=== PATIENT | male | born 2000 | race Caucasian/White ===

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

== ENCOUNTER 2019-05-27 16:27 | Emergency (ER) | payer OTHER, SELFPAY ==
[2019-05-27 16:30] VITALS: BP 136/67; PULSE 79; RESP 17; TEMP 36.7; O2SAT 98; BMI 20.8
--- NOTE | 2019-05-27 17:02 | EKG12_ITS ---
Test Reason : CP Blood Pressure : / mmHG Vent. Rate : 069 BPM Atrial Rate : 069 BPM P-R Int : 144 ms QRS Dur : 084 ms QT Int : 354 ms P-R-T Axes : 062 057 068 degrees QTc Int : 379 ms Normal sinus rhythm Normal ECG Confirmed by INGRID MARTINEZ, CELIA ([id number]), newspaper copy editor BEATRIZ HERNANDEZ (55) on 05/29/2019 11:02:42 AM Referred By: JOE
--- NOTE | 2019-05-27 17:11 | ED.VIS.CHEST ---
History of Present Illness Chief Complaint: Chest Pain Informant: Patient Onset: Days Activity at onset: Unknown Timing: Intermittent Quality: Sharp, - - throbbing Location: Right Chest, Left Chest Worsened By: Nothing Relieved By: Nothing Associated Symptoms: Acid Reflux Narrative: Patient is a 18-year-old male with no past medical history he does a mid to history of vaping presenting with chest pain. Patient states he is having intermittent chest pain for the past few days. Mother states he is been complaining of it for about a week. He states the pain is in his lower anterior chest and radiates from side to side. He also gets some pain around his left shoulder blade. He describes the pain as aching and throbbing. He denies any associated shortness of breath or difficulty breathing. He states the pain last for a couple seconds to a couple minutes at a time and then goes away spontaneously. He cannot recall any aggravating or alleviating factors. He states he has multiple episodes a day but does not know how many. This morning he notes when he woke up he felt like he had indigestion. He took an dloj-toe-zpszkeu medication and that resolved. Patient denies any swelling of his legs. Denies any history of DVT or PE. Patient mother denies any family history of any cardiac issues at a young age. They deny any other complaints at this time. Patient not taken any pain medication for it. Patient notes yesterday he was working and lifting heavy items with no issues. Prior Similar Symptoms: No Recent Illness/Hospitalization: No CVD Risk Factors: Smoking - vaping. Negative for: Hypertension, Diabetes, Hypercholesterolemia, Family History 1' </=55 PE Risk Factors: Negative for: Recent Travel/Surgery, Recenet Immobilization, Prior DVT or PE, Cancer, OCP + Smoking + >/=35 Past Medical History - Allergies and Home Meds Allergies/Adverse Reactions: Allergies No Known Allergies Allergy (Verified 05/27/19 16:28) Primary Care Physician: Nikolas Mathews MD [Primary Care Provider] - Past Medical History: None Surgical History: noncontributory Lives: With Family Smoking Status: Current every day smoker Review of Systems General: Denies: Chills, Fever, Sweats Eyes: Denies: Visual changes - bilaterally, Diplopia ENT: Denies: Rhinorrhea, Sore throat Cardiovascular: Reports: Chest pain. Denies: Palpitations Respiratory: Denies: Dyspnea, Cough, Dyspnea on exertion Gastrointestinal: Denies: Abdominal pain, Nausea, Vomiting, Diarrhea, Melena, Hematochezia Genitourinary: Denies: Dysuria, Hematuria, Frequency Musculoskeletal: Reports: Back pain. Denies: Extremity Pain Skin: Denies: Rash, Wounds Neurological: Denies: Headache, Weakness, Numbness Physical Exam Vital Signs/Narrative: Vital Signs Temp Pulse Resp BP Pulse Ox 05/27/19 16:30 98.0 F 79 17 136/67 H 98 Inital Vital Signs reviewed: Yes General: Well nourished, Well developed, No Acute Distress Head: Normocephalic, Atraumatic Eyes: Perrl, EOMI ENT: Moist mucous membranes, No rhinorrhea Neck: Supple, Nontender, No JVD Cardiovascular: Regular rate, Regular rhythm, No murmurs Respiratory: No distress, CTA bilaterally, Chest nontender, - - No chest wall crepitus appreciated. Negative for: Chest tenderness Abdomen: Soft, Nontender, Nondistended, Normal bowel sounds Back: Nontender, Normal Inspection Extremities: Nontender, No edema Skin: Normal color, No rash Neurological: Alert, Oriented x3, Cranial nerves II-XII grossly intact, Normal Strength, Normal Sensation Psychological: Normal affect, Normal Mood Diagnostic/Tx/Re-eval Chest X-Ray - ED: 2 View, Read by ED Physician, Read by Radiologist, No Acute Disease Clinical Impression(s) from Imaging Studies Chest X-Ray 05/27/19 17:24 IMPRESSION: Normal x-ray examination of the chest. Electronically Signed: Alyssa Correa MD at 17:44 EST Tel , Service support , - Rhythm Strip Rhythm Strip: Sinus Rhythm Rate: 69 Ectopy: None - EKG Initial EKG Interpretation: Sinus Rhythm, - - Sinus rhythm at a rate of [address] segments Normal axis Compared to prior EKG patient has no significant changes?07/17/10 - Medical Decision Making Patient is evaluated for 1 week of intermittent chest pain. He appears nontoxic in no acute distress. EKG is normal. Chest x-rays not show any pneumothorax, infiltrate or cardiomegaly. Patient has a benign physical exam. He is PE RC negative. I suspect this is likely muscle skeletal chest pain. Do not think further lab work or imaging is indicated at this time. I think he is safe for outpatient follow-up. Patient is counseled he should quit vaping. Patient and mother counseled on signs and symptoms requiring return to the emergency room. He verbalizes agreement understand with this plan. He is discharged home in stable condition. ED Disposition - Plan for ED Patient: Disposition: Home or Assisted Living Diagnosis: Chest pain Instructions: CHEST PAIN, NonCardiac Referrals: Nikolas Mathews MD [Primary Care Provider] - Additional Instructions: Your EKG and chest x-ray were normal today. I do not suspect any sinister cause of your chest pain. It is possible that it is pain in your chest wall muscles that is causing the pain. Please follow-up with your primary care doctor for further evaluation if the symptoms continue. Please return to the emergency room if you develop worsening or changing symptoms. Please quit vaping.
--- NOTE | 2019-05-27 17:24 | RAD_ITS ---
STUDY: X-RAY CHEST REASON FOR EXAM: Male, 18 years old. INTERMITTENT CHEST AND BACK PAIN X COUPLE DAYS TECHNIQUE: PA and lateral views of the chest. COMPARISON: 08/07/2017 chest x-ray FINDINGS: The lungs are clear and expanded. There is no demonstrated pleural abnormality. Normal size heart. Normal mediastinum and sirena. Normal visualized pulmonary arteries. Normal visualized aortic arch and descending thoracic aorta. Normal visualized thoracic spine. Normal visualized ribs, clavicles, and shoulders. There is no demonstrated abnormality of the visualized soft tissue structures of the upper abdomen. RAD/Chest PA and Lateral IMPRESSION: Normal x-ray examination of the chest. Electronically Signed: Alyssa Correa MD at 17:44 EST Tel , Service support ,
== END 2019-05-27 18:17 | disposition home or self-care (01) ==
PROVIDERS: Emergency Provider Emergency Medicine; Family Provider Pediatrics; PCP Pediatrics
DX: R07.9 Chest pain, unspecified (principal); K21.9 Gastro-esophageal reflux disease without esophagitis; M54.9 Dorsalgia, unspecified; F17.290 Nicotine dependence, other tobacco product, uncomplicated
CPT/HCPCS: 71046; 93005; 99282

== ENCOUNTER 2022-07-24 19:21 | Emergency (ER) | payer OTHER, SELFPAY ==
[2022-07-24 19:23] VITALS: BP 131/83; PULSE 87; RESP 15; TEMP 37.1; O2SAT 96; BMI 25.7
--- NOTE | 2022-07-24 19:41 | ED.VIS.GI ---
HPI HPI - GI History of Present Illness Chief Complaint: Abd Pain Detail of Chief Complaint: Nausea, vomiting and diarrhea with abdominal cramping. Informant: patient Abdominal Pain/Flank Pain Onset: Days Context: Gradual Onset Timing: Intermittent Quality: Cramping Location: Diffuse Current Severity: Gone Maximum Severity: Mild Worsened by: Nothing Relieved by: Nothing Nausea/Vomiting/Emesis GI Symptom: Positive for Nausea and Vomiting Onset: Days Quality: Negative for Blood streaks, Coffee ground or Hematemesis Severity: Mild Diarrhea/Melena/Hematochezia GI Symptom: Positive for Diarrhea; Negative for Melena or Hematochezia Onset: Days Stool Quality: Positive for Loose Severity: Mild Associated Symptoms Associated Symptoms: Negative for Dysuria, Frequency, Hematuria or Urgency Narrative Narrative: 21-year-old male with past medical history of anxiety. No prior abdominal surgeries. He has had nausea, vomiting and diarrhea since Monday. Vomiting and diarrhea and nausea are improving. Brother has similar symptoms but his was more mild. Patient says he has had some abdominal cramping in the upper abdomen. No prior abdominal surgeries. No dysuria. No melena. No fever. Prior similar symptoms: Yes Recent Illness/Hospitalization: No PFSH PFS Medical History Anxiety Home Medications escitalopram oxalate 20 mg tablet 20 mg PO DAILY 07/24/22 [History Last Taken Unknown] ondansetron 4 mg disintegrating tablet 4 mg PO Q6H PRN nausea and vomiting #7 tabs 07/24/22 [Rx Last Taken Unknown] Allergy/AdvReac Type Severity Reaction Status Date / Time No Known Allergies Allergy Verified 07/24/22 19:25 Surgical History no surgical history no surgical history Social History Smoking Status: Former smoker ROS ROS ED ROS Narrative Nausea, vomiting, diarrhea all of which are improving. Abdominal cramping. Review of Systems ROS Unobtainable: Denies due to encephalopathy Constitutional Constitutional ED: Denies chills or fever(s) ENT ENT ED: Denies ear pain Cardiovascular Cardiovascular: Denies chest pain Respiratory/Chest Respiratory/Chest: Denies cough or dyspnea Gastrointestinal Gastrointestinal: Reports abdominal pain, diarrhea, nausea and vomiting; Denies constipation or melena Genitourinary Genitourinary ED: Denies dysuria or hematuria Musculoskeletal Musculoskeletal: Denies arthralgias Integumentary Denies abscess Neurologic Neurologic: Denies headache(s) Psychiatric Psychiatric: Denies anxiety Endocrine Endocrinology: Denies polydipsia Hematologic/Lymphatic Hematologic/Lymphatic: Denies easy bleeding Allergic/Immunologic Allergic/Immunologic ED: Denies mouth swelling or tongue swelling EXAM Physical Exam Narrative Exam Narrative: 21-year-old male vital signs are stable afebrile. He does not look septic or toxic. No acute distress. H EENT exam mildly dry mucous membranes. Neck nontender no lymphadenopathy. Lungs clear to auscultation. Heart regular rhythm rate about 90 no murmur. Abdomen soft nondistended, nontender. No peritoneal signs. No hernia or mass. No obstruction. Right upper right lower quadrants are unremarkable. Normal bowel sounds. Moving all 4 extremities. Back nontender. Neurologically is awake and alert with no focal motor deficits. Const Vital Signs: 07/24/22 19:23 Temperature 98.7 F Temperature Source Temporal Pulse Rate 87 Respiratory Rate 15 Blood Pressure 131/83 H Blood Pressure Mean 99 Pulse Ox 96 Oxygen Delivery Method Room Air Positive well nourished and well developed; Negative for obese, cachectic, contractures or unkempt General Appearance ED: well developed and NAD; Negative for unkempt, cachectic, contractures or pallor Nutritional Appearance: Negative for cachectic or obese HEENT Reports dry mucous membranes; Denies moist mucous membranes normocephalic and atraumatic; Negative for trauma or tenderness Mouth ED: Yes dry mucous membranes Mouth: dry mucous membranes Eyes PERRL and EOMs intact bilaterally General Eye ED: Negative for pale conjunctiva or scleral icterus Neck no lymphadenopathy, supple and no JVD General: Negative for tenderness Carotids: Negative for other Lymph Lymphatic: Negative for other Resp normal respiratory effort and clear to auscultation bilaterally Effort and Inspection: Negative for respiratory distress Auscultation: Negative for rales, rhonchi or wheezes Cardio regular rate, regular rhythm, S1 normal heart sound, S2 normal heart sound and no murmurs Rate: Negative for bradycardia or tachycardic Rhythm: Negative for abnormal rhythm GI non-tender, non-distended and no masses Inspection: Negative for abdominal distention Auscultation: normoactive bowel sounds Palpation: soft; Negative for tender, guarding, rigid, hepatomegaly, splenomegaly, hernia, mass, pulsatile mass or rebound tenderness present Back/Spine no CVA tenderness General Back: Negative for CVA tenderness Cervical Spine: Negative for cervical spine tenderness Thoracic Spine / Upper Back: Negative for thoracic spinal tenderness Lumbar Spine / Lower Back: Negative for lumbar spinal tenderness Coccyx: Negative for other Extremity full ROM General Extremety ED: Negative for edema or tenderness General Extremity: Negative for edema Neuro CN's II-XII intact bilaterally, moves all extremities and no sensory deficits noted Sensorium / Orientation: alert, oriented to person, oriented to place and oriented to time; Negative for orientation impaired, confused, lethargic or stuporous Motor Exam: strength 5/5 throughout Psych Appearance: Negative for unkempt Attitude: No agitated Mood & Affect: Negative for depressed, anxious or tearful Skin no wounds General Skin Exam: Negative for jaundice or pallor Lesions: no lesions Rashes: no rashes Trauma: Negative for abrasion Nails: Negative for discolored MDM MDM MDM Narrative Medical decision making narrative: 21-year-old I suspect has a viral gastroenteritis. Abdomen is very benign. I do not suspect this is gallbladder disease or appendicitis. There is no signs of obstruction. Will be treated with IV fluids. Currently is not nauseated. He is not having pain. I do not think he needs any imaging. I will do screening labs but I suspect this is a viral gastroenteritis. Repeat exam at 8:20 PM patient doing well. Abdomen benign. Again exam and history are consistent with a viral gastroenteritis. He will be treated with p.o. fluids at home. Zofran as needed. Follow-up if not improving. He does not need any imaging. Lab Data Attestation: I reviewed the patient's lab results. Lab results narrative: CBC unremarkable. White count of 4.6. H&H 16.8 and 51. Electrolytes show potassium of 3.3 gap is 6 BUN 21 creatinine 1.27 consistent with mild dehydration. Liver enzymes unremarkable alk phos of 138. Lipase normal 117. Labs: Laboratory Results - last 24 hr 07/24/22 07/24/22 19:30 19:30 WBC 4.6 RBC 6.20 Hgb 16.8 H Hct 51.1 MCV 82.4 MCH 27.1 MCHC 32.9 RDW Std Deviation 39.1 RDW Coeff of Shelby 13.2 Plt Count 368 MPV 10.6 Immature Gran % (Auto) 0.200 Neut % (Auto) 56.7 Lymph % (Auto) 25.9 Rush % (Auto) 16.2 H Eos % (Auto) 0.6 Baso % (Auto) 0.4 Absolute Neuts (auto) 2.6 Absolute Lymphs (auto) 1.20 Nucleated RBC % 0 Sodium 136 Potassium 3.3 L Chloride 102 Carbon Dioxide 28.0 Anion Gap 6 BUN 21 H Creatinine 1.27 Estim Creat Clear Calc 103.11 Est GFR (MDRD) Af Amer 91 Est GFR (MDRD) Non-Af 75 BUN/Creatinine Ratio 16.5 Glucose 102 Calcium 9.3 Total Bilirubin 0.40 AST 23 ALT 42 Alkaline Phosphatase 138 H Total Protein 8.5 H Albumin 4.2 Globulin 4.3 H Albumin/Globulin Ratio 1.0 Lipase 117 Discharge Plan Triage Chief Complaint: Abd Pain ED Provider: Neftali Kingston Dx/Rx/DC Orders Clinical Impression: Viral gastroenteritis, Abdominal pain Instructions: ED Gastroenteritis, Viral (Adult) Prescriptions: New ondansetron 4 mg tablet,disintegrating 4 mg PO Q6H PRN (Reason: nausea and vomiting) Qty: 7 0RF No Action escitalopram oxalate 20 mg tablet 20 mg PO DAILY Label Comments: TAKE 1 TABLET BY MOUTH ONCE DAILY Primary Care Provider: Kacie Núñez Referrals: Kacie Núñez MD [Primary Care Provider] - 3-5 Days if not improving Activity Restrictions/Additional Instructions: Plenty of fluids and rest. Slowly increase your diet as tolerated. Zofran and as needed if nauseated and vomiting. Follow-up with your doctor if not improving or return if worse. Disposition Disposition: Home, Self Care
[2022-07-24 19:52] LABS: Absolute Neutrophil Count 2.6 X10^3/uL (2.0-7.7); Basophil# 0.02 X10^3/uL; Basophil% 0.4 % (0-1); Eosinophil# 0.03 X10^3/uL; Eosinophils% 0.6 % (0-5); Hematocrit 51.1 % (40-54); Hemoglobin 16.8 g/dL (13.0-16.5); Lymphocyte % 25.9 % (19-41); Mean Corp Hgb Conc 32.9 g/dL (32-36); Mean Corpuscular Hgb 27.1 pg (27.0-32.0); Mean Corpuscular Volume 82.4 fL (80-94); Mean Platelet Vol. 10.6 fl (6.2-12.0); Monocyte# 0.75 X10^3/uL; Monocyte% 16.2 % (0-10); NRBC Flagged by Analyzer 0 % (0-5); Neutrophil # 2.62 X10^3/uL (2.7-7.7); Neutrophil % 56.7 % (47-70); Platelet Count 368 K/mm3 (150-450); RBC Distribution Width CV 13.2 % (11.6-14.6); RBC Distribution Width SD 39.1 fl (35.1-43.9); White Blood Count 4.6 K/mm3 (4.4-11.0)
[2022-07-24] MEDS: 0.9% Normal Saline 1,000 ML 1000 ML IV (19:57)
[2022-07-24 20:13] LABS: AST(SGOT) 23 U/L (15-37); Alanine Aminotransfer ALT/SGPT 42 U/L (16-61); Albumin, Serum 4.2 g/dL (3.2-5.0); Alkaline Phosphatase 138 U/L (45-117); Anion Gap 6 (5-15); BUN 21 mg/dL (7-18); BUN/Creat Ratio 16.5 RATIO (10-20); Calcium,Total 9.3 mg/dL (8.5-10.1); Chloride 102 mmol/L (98-107); Creatinine, Serum 1.27 mg/dL (0.70-1.30); EST Glomerular Filtration Rate 75 mL/min (>60); Est Glom Filt Rate - Afr Amer 91 mL/min (>60); Estimated Creatinine Clearance 103.11 ml/min; Globulin 4.3 g/dL (2.2-4.2); Glucose 102 mg/dL (74-106); Lipase 117 U/L (73-393); Potassium 3.3 mmol/L (3.5-5.1); Protein, Total 8.5 g/dL (6.4-8.2); Sodium Level 136 mmol/L (136-145)
[2022-07-24 20:28] VITALS: BP 109/77; PULSE 82; RESP 16; O2SAT 98
== END 2022-07-24 20:29 | disposition home or self-care (01) ==
PROVIDERS: Emergency Provider Emergency Medicine; PCP Family Medicine; Visit Provider Emergency Medicine
DX: A08.4 Viral intestinal infection, unspecified (principal); Z87.891 Personal history of nicotine dependence; F41.9 Anxiety disorder, unspecified; E66.9 Obesity, unspecified
CPT/HCPCS: 80053; 83690; 85025; 96360; 99283; J7030; A4216

== ENCOUNTER → 2022-09-23 | Outpatient (CLI) | payer OTHER, SELFPAY ==
--- NOTE | 2022-09-23 16:01 | CT_ITS ---
STUDY: CT ABDOMEN AND PELVIS WITH CONTRAST REASON FOR EXAM: Male, 22 years old. Abdominal pain. RADIATION DOSAGE (If Supplied By Facility): CTDIvol = ( 13.44 ) mGy, DLP = ( 903.10 ) mGycm TECHNIQUE: 100 mL of Isovue-300 was administered. Oral contrast was also utilized. Transaxial images were obtained from the dome of the diaphragm to the symphysis pubis. Multiplanar coronal and sagittal images were reformatted. Individualized Dose Optimization Techniques Were Used For This CT. COMPARISON: FINDINGS: The visualized lung bases are unremarkable. The visualized portions of the heart are within normal limits. Normal liver. Normal gallbladder and extrahepatic biliary system. Normal spleen. Normal pancreas. Normal bilateral adrenal glands. Normal visualized stomach. Normal small intestine. Normal colon. There is non-visualization of the appendix. Normal abdominal aorta. Normal IVC No retroperitoneal adenopathy. Normal right kidney. Normal left kidney. Normal urinary bladder. Normal prostate. No pelvic lymphadenopathy. No free air or free fluid is seen within the peritoneal cavity. Normal abdominal wall. Normal osseous structures. CT/Abdomen/Pelvis WITH Contrast IMPRESSION: Normal CT of the abdomen and pelvis. Electronically Signed: Humberto Rothman DO at 21:17 EDT Reading Location ID and State: [id number] Tel [phone], Service support ,
== END | disposition home or self-care (01) ==
LOC: CT 15:56
PROVIDERS: PCP Family Medicine; Referring Provider Family Medicine; Visit Provider Family Medicine
DX: R10.9 Unspecified abdominal pain (principal)
CPT/HCPCS: 74177; Q9967

== ENCOUNTER → 2023-03-01 | Outpatient (CLI) | payer OTHER, SELFPAY ==
[2023-03-01 13:44] LABS: Erythrocyte Sedimentation Rate 11 mm/hr (0-20)
[2023-03-01 13:57] LABS: Vitamin B12 345 pg/mL (211-911)
[2023-03-01 14:24] LABS: Amylase 44 U/L (25-115); Free T3 3.3 pg/mL (2.18-3.98); Lipase 22 U/L (13-75); T4 Free Direct 0.93 ng/dL (0.76-1.46); Thyroid Stim Hormone (TSH) 1.54 uIU/mL (0.358-3.74)
[2023-03-01 15:05] LABS: Hemoglobin A1c 5.1 % (3.8-5.6)
[2023-03-04 15:08] LABS: Anti-Centromere B Ab <0.2 AI (0.0-0.9); Anti-Chromatin <0.2 AI (0.0-0.9); Anti-Jo <0.2 AI (0.0-0.9); Anti-Scleroderma-70 AB <0.2 AI (0.0-0.9); Anti-dsDNA Ab <1 IU/mL (0-9); RNP Ab <0.2 AI (0.0-0.9); SJOGREN'S Anti-SS-A test < 0.2 AI (0.0-0.9); SJOGREN'S Anti-SS-B test < 0.2 AI (0.0-0.9); Smith Ab <0.2 AI (0.0-0.9); Vitamin D 1,25-Dihydroxy 40.7 pg/mL (24.8-81.5)
[2023-03-06 00:06] LABS: Alpha-1-Globulins 0.2 g/dL (0.0-0.4); Alpha-2-Globulins 0.8 g/dL (0.4-1.0); Anti-Parietal Cell AB, QN 2.3 Units (0.0-20.0); Cytoplasmic Ab (C-ANCA) <1:20 titer (Neg:<1:20); Endomysial Antibody IgA Positive (Negative); Gamma Globulin 1.1 g/dL (0.4-1.8); Immunoglobulin A 160 mg/dL (90-386); Immunoglobulin E 174 IU/mL (6-495); Immunoglobulin G 1221 mg/dL (603-1613); Immunoglobulin M 134 mg/dL (20-172); PROEL- TOTAL PROTEIN 7.2 g/dL (6.0-8.5); Perinuclear Ab (P-ANCA) <1:20 titer (Neg:<1:20); t-Transglutaminase IgA <2 U/mL (0-3)
== END | disposition home or self-care (01) ==
LOC: LAB 13:09
PROVIDERS: PCP Family Medicine; Referring Provider Internal Medicine Gastroenterology; Visit Provider Internal Medicine Gastroenterology
DX: R10.9 Unspecified abdominal pain (principal)
CPT/HCPCS: 36415; 82150; 82607; 82652; 82746; 82784; 82785; 83036; 83516; 83690; 84165; 84439; 84443; 84481; 85652; 86140; 86225; 86235; 86255; 86256; 86334; 86677

== ENCOUNTER → 2023-03-21 | Outpatient (CLI) | payer OTHER, SELFPAY ==
--- NOTE | 2023-03-21 15:04 | RAD_ITS ---
STUDY: X-RAY - ABDOMEN/PELVIS REASON FOR EXAM: Male, 22 years old. abdominal pain TECHNIQUE: Single AP view of the abdomen / pelvis. COMPARISON: None. FINDINGS: Normal visualized lung bases. There is an unremarkable bowel gas pattern. There is no demonstrated free abdominal air. The visualized liver, spleen and kidneys are grossly normal in size and morphology. Normal soft tissue structures. Normal visualized osseous structures. RAD/Abdomen Single View IMPRESSION: Normal x-ray examination of the abdomen and pelvis. Electronically Signed: Ramone Sepulveda MD at 22:58 EDT ,
== END | disposition home or self-care (01) ==
LOC: RAD 15:00
PROVIDERS: PCP Family Medicine; Referring Provider Internal Medicine Gastroenterology; Visit Provider Internal Medicine Gastroenterology
DX: R10.9 Unspecified abdominal pain (principal)
CPT/HCPCS: 74018

== ENCOUNTER → 2023-03-23 | Outpatient (CLI) | payer OTHER, SELFPAY ==
--- NOTE | 2023-03-23 15:32 | RAD_ITS ---
INDICATION: sitz markers evaluation EXAMINATION/TECHNIQUE: X-RAY - XR Abdomen 1 View COMPARISON: 03/21/2023 FINDINGS: BOWEL GAS PATTERN: Non-obstructive. Moderate amount retained stool in the colon. FREE AIR: Not assessed on a single supine view. ORGANOMEGALY: Not seen. CALCIFICATIONS: No abnormal calcifications observed. LOWER CHEST: No acute pathology. BONES AND SOFT TISSUES: No acute pathology. RAD/Abdomen Single View IMPRESSION: Sitz markers are not visualized. Electronically Signed: Sherman Christianson MD at 19:02 EDT ,
== END | disposition home or self-care (01) ==
PROVIDERS: PCP Family Medicine; Referring Provider Internal Medicine Gastroenterology; Visit Provider Internal Medicine Gastroenterology
DX: R10.84 Generalized abdominal pain (principal)
CPT/HCPCS: 74018

== ENCOUNTER 2023-04-18 12:37 | Day surgery (SDC) | payer OTHER, SELFPAY ==
[2023-04-18] VITALS (8 sets, daily range): BP systolic 96–121; BP diastolic 55–72; PULSE 52–73; RESP 16–18; TEMP 36.2–36.6; O2SAT 93–98; BMI 25.3
--- NOTE | 2023-04-18 | EGD_PTH ---
PATIENT: DA HENSON LOC: EN U#:[id number] AGE/SX: 22/M ROOM: RE04/18/[address]: Dr. Jt Barker DO : 2000 BED: DIS: 04/18/2023 SPEC #: [id number] RECD: 04/18/23 16:23 STATUS: NOAH TALON #: [id number] JOSH: 04/18/23 00:[address]: Jt Barker DEPT: SURGICAL PATHOLOGY RECD BY: Clara Harvey ENTERED: 04/19/23 07:42 SP TYPE: EGD BIOPSY [facility] DR: Dr. Kacie Núñez MD Tissues: A - Duodenum, NOS B - Gastric mucous membrane C - Esophagus, NOS Procedures: Special Stain Group II Surgery Specimen Level IV Alcian Blue/PAS (control) HEADER OPERATION: EGD with biopsies PRE-OP DIAGNOSIS: Abdominal pain TISSUE SUBMITTED: A - Duodenal biopsy, B - Gastric body biopsy, C - Distal esophagus biopsy MICROSCOPIC DIAGNOSIS A. Duodenum, biopsy: Mild nonspecific chronic inflammation. B. Gastric body, biopsy: Mild chronic gastritis. See comment. C. Distal esophagus, biopsy: Gastroesophageal junctional mucosa with mild chronic inflammation. Focal changes of reflux. No evidence of goblet cell metaplasia. See comment. AM:catia 04/20/2023 COMMENT B. The results of immunohistochemistry for Helicobacter pylori will be reported separately ([id number]). C. Alcian blue/PAS stain with matched control supports the above diagnosis. MICROSCOPIC DESCRIPTION Slides are reviewed. GROSS DESCRIPTION A - Received in fixative is one container labeled with the patient's name and designated duodenal ulcer. The specimen consists of multiple irregular fragments of light gardner soft tissue that in aggregate measure 1.0 x 0.6 x 0.1 cm. The specimen is totally submitted in one cassette. B - Received in fixative is one container labeled with the patient's name and designated gastric body. The specimen consists of two irregular fragments of light gardner soft tissue that in aggregate measure 0.6 x 0.3 x 0.1 cm. The specimen is totally submitted in one cassette. C - Received in fixative is one container labeled with the patient's name and designated distal esophagus. The specimen consists of two irregular fragments of light gardner soft tissue that in aggregate measure 0.7 x 0.3 x 0.1 cm. The specimen is totally submitted in one cassette. / AM:catia 04/19/2023 TC:3 CPT: 16447 x3, 41301
--- NOTE | 2023-04-18 13:08 | PCM.HP.BLA ---
History and Physical Date of Admission: 04/18/23 22 M who presents to the office today for initial consult. PMH ADHD, Aspergers; anxiety? [facility] ED 07.24.22 N/V/D with abdominal cramping. Suspect viral enteritis; IVF and discharged with Zofran.?Biochemical?CBC, CMP without pertinent abnormality? AST 23-ALT 42-AP H138, globulin H4.3? PCP OV 08.30.22 as ED f/u with ongoing abdominal pain typically following evening meal; Mylanta partially helpful and changing order at [facility] has been helpful. Notes somewhat stressful employment.?CT abd/pel 09.23.22?without acute/chronic finding.? ? Pt reports ongoing early satiety, abdominal pain with nausea. Sx made worse when eating greasy or fried foods. BM are normal and consistent. Has acid reflux at night. ? ROS Const Constitutional: No fatigue ENT ENT: No difficulty swallowing Gastro GI: Positive for abdominal pain, constipation, heartburn and nausea/dyspepsia; No belching, bloating, change in bowel habits, change in stool character, coffee ground emesis, cramping, diarrhea, difficulty swallowing, feeling full early, excessive flatus, incontinent of stools, Vomiting blood/hematemesis, Blood in stool, loose stools, Black,tarry stools, pain with swallowing, vomiting or other Musc Musculoskeletal: No joint pain Skin Skin: No yellowing of the eye or itchy eyes Psych Psychiatric: Positive for anxiety and No depression Endo Endocrine: No fatigue Aller/Imm Allergy/Immunologic: No itchy eyes Jhonathan/Lymp Hematologic/Lymphatic: No easy bleeding or easy bruising Exam Const General: cooperative and well developed HENMT Head: normal to inspection and atraumatic Ears: hearing grossly normal bilaterally Nose: nasal discharge clear Face and sinus: normal facial exam Mouth: oral mucosae normal Throat: abnormal tonsil bilaterally hypertrophy 1+ Resp Effort & Inspection: normal respiratory effort and no audible wheezes Auscultation: Bilateral: Clear to Auscultation Cardio Palpation: normal PMI Rate: regular rate Rhythm: regular rhythm Neuro General: patient alert and CN's II-XI intact bilaterally Psych Appearance: grossly normal Mental Status: mental status grossly normal Quality Reporting Tobacco Screening ([facility] 138) Smoking Status: Former smoker Assessment and Plan Assessment and Plan (1) Abdominal pain: Status: Inactive Qualifiers: Abdominal location: generalized Qualified Code(s): R10.84 - Generalized abdominal pain Plan: Differential diagnosis for his abdominal pain does include IBS with constipation because he does have a long 20-year history of constipation. He does not go to the bathroom for 3 to 4 days at a time despite him eating every day. He does not get enough fiber in his diet but constipation has always been a problem as per his mother who is with him on visit today. She used to give a mineral oil, MiraLAX and fiber with lack of bowel movement. He has not been evaluated for colonic motility problem such as Hirschsprung's disease. He will undergo biochemical testing in the blood for H. pylori, celiac disease other autoimmune diseases. He will also undergo a gastric emptying study because he is having some postprandial nausea and early fullness. Lastly he will undergo a sits marker test so we can see if he is slow transit constipation versus pelvic floor dysfunction. Him and his mother okay with this plan and he will follow-up after we get the results from his test. I also explained to him that he may need an upper and lower endoscopy in the future but we will not know that until we complete his initial work-up. (2) Body aches: Status: Acute Orders: Orders ANCA Today R10.9 - Unspecified abdominal pain Celiac Disease Profile Today R10.9 - Unspecified abdominal pain CRP Today R10.9 - Unspecified abdominal pain Erythrocyte Sed Rate Today R10.9 - Unspecified abdominal pain Immunoglobulin A Today R10.9 - Unspecified abdominal pain Immunoglobulin E Today R10.9 - Unspecified abdominal pain Immunoglobulin G Today R10.9 - Unspecified abdominal pain Immunoglobulin M Today R10.9 - Unspecified abdominal pain Hemoglobin A1c Today R10.9 - Unspecified abdominal pain CHARLY + Protein Elect, Serum Today R10.9 - Unspecified abdominal pain CARYN Comprehensive Panel Today R10.9 - Unspecified abdominal pain Amylase Today R10.9 - Unspecified abdominal pain Lipase Today R10.9 - Unspecified abdominal pain Thyroid Stim Hormone (TSH) Today R10.9 - Unspecified abdominal pain Vitamin B12 Today R10.9 - Unspecified abdominal pain Folates, (Folic Acid) Today R10.9 - Unspecified abdominal pain Free T3 Today R10.9 - Unspecified abdominal pain Vitamin D 1,25-Dihydroxy Today R10.9 - Unspecified abdominal pain T4 Free Direct Today R10.9 - Unspecified abdominal pain Anti-Parietal Cell AB, QN Today R10.9 - Unspecified abdominal pain Abdomen Single View Today R10.9 - Unspecified abdominal pain Gastric Emptying Study Today R10.9 - Unspecified abdominal pain H. Pylori Antibody (IgG) Today R52 - Pain, unspecified I have examined the patient and the H&P has been reviewed. There are no clinical changes since date of exam.
[2023-04-18] MEDS: Lactated Ringers 1,000 ML 15 ML IV (13:16)
--- NOTE | 2023-04-18 13:45 | IMM_PTH ---
PATIENT: DA HENSON LOC: EN U#:[id number] AGE/SX: 22/M ROOM: RE04/18/[address]: Dr. Jt Barker DO : 2000 BED: DIS: 04/18/2023 SPEC #: [id number] RECD: 04/19/23 13:24 STATUS: NOAH REQ #: [id number] JOSH: 04/18/23 13:[address]: Jt Barker DEPT: IMMUNOHISTOCHEMISTRY RECD BY: Stefania Saenz ENTERED: 04/19/23 13:25 SP TYPE: IMMUNO OTHR DR: Dr. Kacie Núñez MD Tissues: B - Stomach, NOS Procedures: H Pylori (initial) PHYSICIAN & INSTITUTION [place] [address] SPECIMEN INFORMATION: Tissue Source: B - Gastric body Clinical Info: Abdominal pain Specimen Number: [id number] CPT code: 25139 METHODOLOGY: Deparaffinized sections of prefer/formalin-fixed tissue or PAP/DQ stained slides are incubated with monoclonal/polyclonal antibodies/oligonucleotide probes. Localization is made via biotin free immunoperoxidase method. Appropriate controls are performed and reacted as expected. Results on target cell population are indicated in the following table: RESULTS: ANTIBODY / CLONE RESULT Block B H Pylori (polyclonal) negative These tests were developed and their performance characteristics determined by [facility]. They may not have been cleared or approved by the U.S. Food and Drug Administration. The FDA has determined that such clearance or approval is not necessary. The above immunohistochemical/dualISH markers are ordered and reviewed by the Pathologist. INTERPRETATION: B. Gastric body, biopsy: Negative for Helicobacter pylori organisms. AM:catia 04/20/2023
--- NOTE | 2023-04-18 14:17 | OP.CCLET_ITS ---
04/18/2023 Kacie Núñez [address] [place] [address] Re : Upper GI endoscopy procedure for Nate Quintero Dear Dr. Núñez This procedure was performed on Tuesday, April 18, 2023. My impressions and recommendations are as follows: Impressions : - Z-line irregular, 38 cm from the incisors. Biopsied. - Erythematous mucosa in the gastric body. Biopsied. - No gross lesions in the second portion of the duodenum. Biopsied. Recommendations : - Discharge patient to home. - Resume previous diet. - Continue present medications. - Await pathology results. - Repeat upper endoscopy for surveillance. - Return to GI office. My findings are described in the full procedure note, which is enclosed. If I can be of further assistance, please feel free to contact me at . Sincerely, tJ Barker, 04/18/2023 2:16:26 PM This report has been signed electronically.
--- NOTE | 2023-04-18 14:17 | OP.EGD_ITS ---
Patient Name: Nate Quintero Procedure Date: 04/18/2023 1:44 PM Date of : 2000 Age: 22 Procedure: Upper GI endoscopy Indications: Epigastric abdominal pain Providers: Jt Barker DO Medicines: Monitored Anesthesia Care Patient Profile: This is a 22 year old male. Refer to note in patient chart for documentation of history and physical. Patient has symptoms of acute abdominal cramping, chronic right upper quadrant abdominal pain and acute epigastric abdominal pain. Complications: No immediate complications. Procedure: Pre-Anesthesia Assessment: - Prior to the procedure, a History and Physical was performed, and patient medications and allergies were reviewed. The risks and benefits of the procedure and the sedation options and risks were discussed with the patient. All questions were answered and informed consent was obtained. Patient identification and proposed procedure were verified by the physician. Mental Status Examination: normal. Prophylactic Antibiotics: The patient does not require prophylactic antibiotics. Prior Anticoagulants: The patient has taken no anticoagulant or antiplatelet agents. After reviewing the risks and benefits, the patient was deemed in satisfactory condition to undergo the procedure. The anesthesia plan was to use monitored anesthesia care (MAC). Immediately prior to administration of medications, the patient was re-assessed for adequacy to receive sedatives. The heart rate, respiratory rate, oxygen saturations, blood pressure, adequacy of pulmonary ventilation, and response to care were monitored throughout the procedure. The physical status of the patient was re-assessed after the procedure. After obtaining informed consent, the endoscope was passed under direct vision. Throughout the procedure, the patient's blood pressure, pulse, and oxygen saturations were monitored continuously. The Endoscope was introduced through the mouth, and advanced to the second part of duodenum. The upper GI endoscopy was accomplished without difficulty. The patient tolerated the procedure well. Scope In: 1:54:47 PM Scope Out: 2:01:05 PM Total Procedure Duration Time 0 hours 6 minutes 18 seconds Findings: The Z-line was irregular and was found 38 cm from the incisors. Biopsies were taken with a cold forceps for histology. Verification of patient identification for the specimen was done. Estimated blood loss was minimal. Patchy mildly erythematous mucosa without bleeding was found in the gastric body. Biopsies were taken with a cold forceps for histology. Verification of patient identification for the specimen was done by the physician. Estimated blood loss was minimal. Biopsies were taken with a cold forceps for Helicobacter pylori testing. Verification of patient identification for the specimen was done. Estimated blood loss was minimal. No gross lesions were noted in the second portion of the duodenum. Biopsies were taken with a cold forceps for histology. Verification of patient identification for the specimen was done. Estimated blood loss was minimal. Impression: - Z-line irregular, 38 cm from the incisors. Biopsied. - Erythematous mucosa in the gastric body. Biopsied. - No gross lesions in the second portion of the duodenum. Biopsied. Recommendation: - Discharge patient to home. - Resume previous diet. - Continue present medications. - Await pathology results. - Repeat upper endoscopy for surveillance. - Return to GI office. Procedure Code(s): --- Professional --- 80750, Esophagogastroduodenoscopy, flexible, transoral; with biopsy, single or multiple CPT copyright 2021 [employer]. All rights reserved. The codes documented in this report are preliminary and upon outpatient case manager review may be revised to meet current compliance requirements. Jt Barker DO 04/18/2023 2:16:26 PM This report has been signed electronically. Number of Addenda: 0 Note Initiated On: 04/18/2023 1:44 PM
== END 2023-04-18 15:15 | disposition home or self-care (01) ==
LOC: EN 12:39 → AC 12:41
PROVIDERS: PCP Family Medicine; Referring Provider Internal Medicine Gastroenterology; Visit Provider Internal Medicine Gastroenterology
PROC: 0DJ08ZZ Inspection of Upper Intestinal Tract, Via Natural or Artificial Opening Endoscopic (ICD-10-PCS; CPT 43235; principal; 2023-04-18 13:40)
DX: K29.50 Unspecified chronic gastritis without bleeding (principal); Z87.891 Personal history of nicotine dependence; K29.80 Duodenitis without bleeding
CPT/HCPCS: 43239; 88305; 88313; 88342; J7120; J2405

== ENCOUNTER → 2023-04-28 | Outpatient (CLI) | payer OTHER, SELFPAY ==
--- NOTE | 2023-04-28 09:59 | US_ITS ---
STUDY: ABDOMINAL ULTRASOUND - RIGHT UPPER QUADRANT REASON FOR VISIT: Male, 22 years old RIGHT UPPER QUADRANT PAIN TECHNIQUE: Ultrasound evaluation of the right upper quadrant was performed with real-time and static simmons-scale imaging. TECHNICAL QUALITY: Limited. Examination limited by bowel gas. COMPARISON: CT from 03/21/2023 FINDINGS: Liver: The liver measures 13.9 cm. There is increased echogenicity consistent with fatty infiltration. The bile ducts are within normal limits. There is hepatic color flow. The direction of portal flow is hepatopetal. There is no demonstrated mass lesion. Gallbladder: Normal distended gallbladder. The gallbladder wall measures 2 mm. There is a negative sonographic Oakes''s sign. There is no pericholecystic fluid. There are no gallstones. Common Bile Duct (C.B.D.): The common bile duct measures 2 mm. Pancreas: There is nonvisualization of the pancreas. Right Kidney: Normal size of the right kidney. The right kidney measures 8.7 x 5.2 x 5.1 cm. Normal renal cortex. The right cortex measures 1.4 cm. There is no demonstrated renal mass or cyst. There is no right hydronephrosis. US/Abdomen Limited IMPRESSION: Fatty liver, no discrete lesion Electronically Signed: Sanju Purcell MD at 17:49 EST ,
== END | disposition home or self-care (01) ==
LOC: US 09:57
PROVIDERS: PCP Family Medicine; Referring Provider Internal Medicine Gastroenterology; Visit Provider Internal Medicine Gastroenterology
DX: R10.11 Right upper quadrant pain (principal)
CPT/HCPCS: 76705

== ENCOUNTER → 2023-05-02 | Outpatient (CLI) | payer OTHER, SELFPAY ==
--- NOTE | 2023-05-02 10:43 | NM_ITS ---
CLINICAL: 22-year-old male with history of abdominal pain. SEMI-SOLID PHASE 99m Tc SULFUR COLLOID GASTRIC EMPTYING STUDY COMPARISON: None available FINDINGS: The patient was administered 1.0 mCi of 99m Tc sulfur colloid mixed with oatmeal and consumed per os. Image acquisitions in the anterior-posterior projections were obtained for 60 minutes. There is prompt visualization of the stomach. There is no gastroesophageal reflux identified. The T ? raw data emptying was calculated to be 38.03 minutes, (Normal: 12-56 minutes). NM/Gastric Emptying Study IMPRESSION: 1. NORMAL 99m Tc sulfur colloid semi-solid phase (oatmeal) gastric emptying imaging examination. A. There is normal and preserved semi-solid phase gastric emptying compared to normal controls. (Elliott et al, J Nucl Med Tech 38: 186, 2010). Electronically Signed: Alli Lala DO at 23:00 EST ,
== END | disposition home or self-care (01) ==
LOC: NM 10:43
PROVIDERS: PCP Family Medicine; Referring Provider Internal Medicine Gastroenterology; Visit Provider Internal Medicine Gastroenterology
DX: R10.9 Unspecified abdominal pain (principal)
CPT/HCPCS: 78264; A9541

== ENCOUNTER → 2023-05-23 | Outpatient (CLI) | payer OTHER, SELFPAY ==
--- NOTE | 2023-05-23 11:01 | NM_ITS ---
CLINICAL: 22-year-old male with history of abdominal pain. RADIONUCLIDE HEPATOBILIARY SCINTIGRAPHY COMPARISON: Abdominal ultrasound report 04/28/2023 FINDINGS: Following the intravenous administration of 5.3 mCi of 99m Tc Mebrofenin, hepatobiliary images reveal: 1. Relatively prompt and homogeneous radiopharmaceutical concentration is noted by a normal sized liver. No parenchymal defects are identified. 2. Gallbladder activity is identified at 10 minutes post radiopharmaceutical administration. 3. Small intestinal tract is not visualized during 60 minutes of pre-CCK sequential imaging. Small bowel activity is identified following the administration of cholecystokinin. 4. Washout of the radiopharmaceutical by the hepatic parenchyma appears qualitatively normal. Cholecystokinin (0.02 ug/kg) was administered intravenously over a 30-minute period. The post CCK gallbladder ejection fraction calculated at 20 minutes following Cholecystokinin administration was noted to be 94.0 % (normal greater than 35%). During 30 minutes of post CCK imaging, there is no scintigraphic evidence of reflux of the radiotracer into the common hepatic duct or refilling of the gallbladder. NM/Hepatobilliary Img w/Pharm Int IMPRESSION: 1. NORMAL 99m Tc Mebrofenin hepatobiliary imaging examination with Cholecystokinin. A. A gallbladder ejection fraction calculated to be greater than 35% following the administration of Cholecystokinin makes the probability of functional hepatobiliary disease (gallbladder and/or sphincter of Oddi dyskinesia) and/or organic hepatobiliary disease (chronic acalculous cholecystitis and/or cystic duct syndrome) to be low. (Kimberley Sales al, Journal of Nuclear Medicine 32:1695, 1991). Electronically Signed: Alli Lala DO at 8:40 EST ,
--- OUTSIDE RECORDS SUMMARY | 2023-05-23 12:05 | XMS RPT_ITS | CCD ---
Author Name Unknown Address [address] [place] [address] Organization [facility] Results Test Name Value Interpretation Reference Range Facil ity Progress note 09-16-2020 Note Date & Type Note Facility 09-16-2020 Note HNO ID: [id number] Author: Lei Ventura MD Service: ? Author Type: Physician Type: Progress Notes Filed: 09/16/2020 4:24 PM Note Text: This note was created using [employer]. Subjective Patient presents with: Establish Care Nate Quintero was here for anxiety. Symptoms started a little more than one month ago. There was no specific triggers and patient indicated he just felt nervous for no reason. Details were not clear, but he apparently moved out against his parent's wishes and lived with his girlfriend's parents. That did not work out, and it seems the girlfriend ended the relationship. He returned home, and had been noted to be nervous since. He had constant thoughts in his head, and had trouble sleeping. His mother felt he was anxious about being an adult. He had no prior treatment for anxiety or depression. He had a history of ADD untreated for years. He always had pervasive thoughts, and made a big deal of minor comments or remarks. He worked at a fast food restaurant, and had his first panic attack a few weeks ago, where his mother had to calm him down. They then decided it was time to seek help. He otherwise felt physically well. He can bike for miles and walks regularly listening to music. The history is provided by the patient and a parent. Review of Systems Constitutional: Negative. HENT: Negative. Eyes: Negative. Respiratory: Negative. Cardiovascular: Negative. Gastrointestinal: Negative. Genitourinary: Negative. Musculoskeletal: Negative. Skin: Negative. Neurological: Negative. Psychiatric/Behavioral: Positive for dysphoric mood and sleep disturbance. Negative for confusion, decreased concentration, hallucinations, self-injury and suicidal ideas. The patient is nervous/anxious. PAST MEDICAL HISTORY Diagnosis Date - ADD (attention deficit disorder) without hyperactivity 2007 - Asperger's disorder 2009 - Collar bone fracture 11/20/2011 PAST SURGICAL HISTORY Procedure Laterality Date - CIRCUMCISION,OTHR, FAMILY HISTORY Problem Relation Age of Onset - None Father - other (gall bladder removed [Other]) Mother Immunization History Administered Date(s) Administered Chicken Pox (disease) 06/25/2009 DTaP (Age<7) 2000 02/25/2000 04/21/2000 03/26/2001 02/06/2006 Hepatitis B Peds/Adol 2000 04/21/2000 09/26/2000 Hib - 4 Dose Schedule 2000 02/25/2000 04/21/2000 Human Papillomavirus 9-valent Vaccine, Recombinant 01/08/2018 06/01/2018 IPV 2000 02/25/2000 03/26/2001 01/03/2006 Influenza Seasonal Inj Age 3+ 06/01/2018 MMR 09/26/2000 01/03/2006 Meningococcal Conj IM Unspec 12/19/2012 Meningococcal Conjugate MCV4P Vaccine, IM 01/08/2018 Tdap (Age 7+) 12/19/2012 Varicella Vaccine 09/26/2000 Social History Tobacco Use - Smoking status: Never Smoker - Smokeless tobacco: Never Used - Tobacco comment: quit vaping 1 year. Vaping Use - Vaping Use: Former Substance Use Topics - Alcohol use: No - Drug use: No ALLERGIES No Known Allergies CURRENT MEDICATIONS: None. Objective BP 118/74 (BP Site: Left Arm, BP Position: Sitting, BP Cuff Size: Regular Adult) Pulse 80 Temp 37.1 ?C (98.7 ?F) (Temporal Artery) Resp 16 Ht 179.3 cm (5' 10.6 ) Wt 70.8 kg (156 lb) BMI 22.00 kg/m? Physical Exam Constitutional: General: He is not in acute distress. Appearance: He is not ill-appearing. HENT: Head: Normocephalic. Eyes: Extraocular Movements: Extraocular movements intact. Conjunctiva/sclera: Conjunctivae normal. Pupils: Pupils are equal, round, and reactive to light. Cardiovascular: Rate and Rhythm: Normal rate and regular rhythm. Heart sounds: No murmur heard. No gallop. Pulmonary: Effort: Pulmonary effort is normal. Breath sounds: Normal breath sounds. Abdominal: Palpations: Abdomen is soft. Tenderness: There is no abdominal tenderness. Musculoskeletal: General: Normal range of motion. Right lower leg: No edema. Left lower leg: No edema. Neurological: General: No focal deficit present. Mental Status: He is alert and oriented to person, place, and time. Gait: Gait normal. Psychiatric: Attention and Perception: Attention and perception normal. Mood and Affect: Mood is anxious. Speech: Speech is rapid and pressured. Behavior: Behavior is agitated. Thought Content: Thought content normal. Patient Health Questionnaire (PHQ-9) Over the last 2 weeks, how often have you been bothered by: 1. Little interest or pleasure in doing things. 0 2. Feeling down, depressed, hopeless. 1 3. Trouble falling asleep or sleeping too much. 1 4. Feeling tired or having little energy. 1 5. Poor appetite or overeating. 0 6. Feeling bad about yourself, ... 0 7. Trouble concentrating on things... 1 8. Moving or speaking so slowly others notice... 0 9. Thoughts that you would be better off ... 0 10. How difficult have these problems made it f (more content not included)... [facility] Summary Purpose Family History No Family History Records Found Advance Directives No Advanced Directives Records Found Additional Source Comments (unrecognized sect ion and content) No Status Records Found INFORMATION SOURCE (unrecogn ized section and content) FOR RECORDS PERTAINING TO PATIENTS WHO ARE OR HAVE BEEN ENROLLED IN A CHEMICAL DEPENDENCY/SUBSTANCEABUSE PROGRAM, SOME INFORMATION MAY BE OMITTED. This clinical summary was aggregated from multiple sources. Caution should be exercised in using it in the provision of clinical care. This summary normalizes information from multiple sources, and as a consequence, information in this document may materially change the coding, format and clinical context of patient data. In addition, data may be omitted in some cases. CLINICAL DECISIONS SHOULD BE BASED ON THE PRIMARY CLINICAL RECORDS. [employer] [facility]. provides no warranty or guarantee of the accuracy or completeness of information in this document.
== END | disposition home or self-care (01) ==
LOC: NM 11:01
PROVIDERS: PCP Family Medicine; Referring Provider Internal Medicine Gastroenterology; Visit Provider Internal Medicine Gastroenterology
DX: R10.9 Unspecified abdominal pain (principal); K29.70 Gastritis, unspecified, without bleeding
CPT/HCPCS: 78227; A9537; J2805

== ENCOUNTER 2023-05-28 09:48 | Emergency (ER) | payer OTHER, SELFPAY ==
[2023-05-28 09:49] VITALS: BP 138/79; PULSE 88; RESP 16; TEMP 36.4; O2SAT 97; BMI 24.7
--- NOTE | 2023-05-28 10:07 | EDS_ITS ---
HPI History of Present Illness HPI Narrative: Healthy 22-year-old male [id number]. Had his left hand injured when a piece of plastic was being fed into a press. It was stuck for several minutes. No prior left hand injury or surgery. No other complaints. Chief Complaint: Upper Extremity Injury Informant: patient Occured/Mechanism Mechanism/Context: Yes injury and Yes blunt trauma Onset/Context/Timing Onset: Today and Hours Context: Sudden Onset Timing: Continuous Quality of Pain: Dull and Aching Current Severity: Mild Maximum Severity: Mild Narrative Narrative: 22-year-old male [id number] left hand injury at work. Occurred within the last hour or so. Prior similar symptoms: No Recent Illness/Hospitalization: No PFSH PFS Medical History ADHD Anxiety Asperger syndrome Constipation Gastritis Heartburn Migraine headache Home Medications escitalopram oxalate 20 mg tablet 20 mg PO DAILY 07/24/22 [History Last Taken Unknown] Allergy/AdvReac Type Severity Reaction Status Date / Time No Known Allergies Allergy Verified 04/18/23 13:05 Social History Smoking Status: Former smoker alcohol intake: never ROS ROS ED ROS Narrative Denies recent illness. Review of Systems ROS Unobtainable: Denies due to encephalopathy Constitutional Constitutional ED: Denies chills or fever(s) Eyes Eyes: Denies blurry vision ENT ENT ED: Denies ear pain Cardiovascular Cardiovascular: Denies chest pain Respiratory/Chest Respiratory/Chest: Denies cough Gastrointestinal Gastrointestinal: Denies abdominal pain Genitourinary Genitourinary ED: Denies dysuria Musculoskeletal Musculoskeletal: Denies back pain Integumentary Denies abscess Neurologic Neurologic: Denies headache(s) Psychiatric Psychiatric: Denies anxiety Hematologic/Lymphatic Hematologic/Lymphatic: Denies easy bleeding Allergic/Immunologic Allergic/Immunologic ED: Denies mouth swelling EXAM Physical Exam Narrative Exam Narrative: Appearing 22-year-old male. Vital signs stable afebrile. Exam normal except left hand there is abrasion and soft tissue injury along the MCP of the index, long and ring finger. He has full flexion extension. Normal cap refill. Normal sensation. No gross bony deformity. He is able to do full flexion extension against resistance. Heart lung abdominal exams are unremarkable. Const Vital Signs: 05/28/23 09:49 Temperature 97.6 F L Temperature Source Temporal Pulse Rate 88 Respiratory Rate 16 Blood Pressure 138/79 H Blood Pressure Mean 98 Pulse Ox 97 Oxygen Delivery Method Room Air Positive well nourished and well developed; Negative for obese, cachectic, contractures or unkempt General Appearance ED: well developed and NAD; Negative for unkempt, cachectic, contractures, cyanotic or diaphoretic Nutritional Appearance: Negative for cachectic or obese HEENT Reports moist mucous membranes normocephalic and atraumatic; Negative for trauma or tenderness Eyes PERRL and EOMs intact bilaterally General Eye ED: Negative for other Neck full ROM and supple General: Negative for tenderness Lymph Lymphatic: Negative for other Chest Wall inspection of chest normal and palpation of chest normal Chest: Negative for other Resp normal respiratory effort and clear to auscultation bilaterally Effort and Inspection: Negative for pain with movement Auscultation: Negative for rales, rhonchi or wheezes Cardio regular rate, regular rhythm, S1 normal heart sound, S2 normal heart sound and no murmurs Rate: Negative for bradycardia or tachycardic Rhythm: Negative for abnormal rhythm GI non-tender, non-distended and no masses Inspection: Negative for abdominal distention Auscultation: normoactive bowel sounds Palpation: soft; Negative for tender or guarding Bladder / Kidney Exam: No other Back/Spine no CVA tenderness General Back: Negative for CVA tenderness Cervical Spine: Negative for cervical spine tenderness Thoracic Spine / Upper Back: Negative for thoracic spinal tenderness Lumbar Spine / Lower Back: Negative for lumbar spinal tenderness Extremity full ROM; Negative for normal to inspection Extremity Narrative: Region soft tissue injury dorsum of left hand primarily involve the MCP of the left long, index and ring fingers. Full flexion extension. Normal cap refill. Normal sensation. No gross bony deformity. Neuro oriented x3, CN's II-XII intact bilaterally, moves all extremities, no focal motor deficits and no sensory deficits noted Sensorium / Orientation: alert, oriented to person, oriented to place and oriented to time; Negative for orientation impaired or lethargic Motor Exam: strength 5/5 throughout Psych mental status grossly normal Appearance: Negative for unkempt Attitude: No agitated Mood & Affect: Negative for depressed, anxious or tearful Skin General Skin Exam: Negative for petechiae Lesions: no lesions Rashes: no rashes Trauma: abrasion; Negative for no lacerations or abrasions MDM MDM MDM Narrative Medical decision making narrative: 22-year-old male left hand injury. Does not want anything for pain. X-ray being obtained. Repeat exam unchanged. Patient was placed in aluminum finger splint. Outpatient follow-up. He and I discussed his x-ray results. History & Record Review Discussion w/independent historian: Patient Radiography Chest X-Ray - ED: Read by ED Physician Diagnostic Testing: Left hand x-ray 3 views interpreted by myself shows avulsion fracture of the proximal end of the proximal phalanx of the left index finger. Age- indeterminate. Given the current injury, swelling and local tenderness suspect acute. Discharge Plan Triage Chief Complaint: Upper Extremity Injury ED Provider: Neftali Kingston Dx/Rx/DC Orders Clinical Impression: Fracture of phalanx of left index finger, Encounter related to worker's compensation claim, Contusion of soft tissue Instructions: ED Fracture, Finger, Closed Prescriptions: No Action escitalopram oxalate 20 mg tablet 20 mg PO DAILY Patient Comments: TAKE 1 TABLET BY MOUTH ONCE DAILY Primary Care Provider: Kacie Núñez Referrals: [facility] [Group of Physicians] - 3-5 Days Kacie Núñez MD [Primary Care Provider] - Activity Restrictions/Additional Instructions: You have a small fracture of the proximal end of the left index finger. Ice and elevate. Motrin for pain and swelling and Tylenol for pain. Aluminum splint. Follow-up with [facility]. Disposition Disposition: Home, Self Care
--- NOTE | 2023-05-28 10:15 | RAD_ITS ---
STUDY: X-RAY - LEFT HAND REASON FOR EXAM: Male, 22 years old. Left hand injury TECHNIQUE: 3 view(s) of the hand. COMPARISON: None. FINDINGS: Normal radiocarpal articulation. Normal distal radioulnar joint. Normal visualized carpal bones. Normal carpal articulations Normal carpometacarpal articulation of the thumb. Normal second through fifth carpometacarpal joints. Normal metacarpi. Normal metacarpophalangeal joint of the thumb. Normal interphalangeal joint of the thumb. Normal proximal and distal phalanges of the thumb. Normal metacarpophalangeal joints of the second through fifth fingers. Normal proximal and distal interphalangeal joints of the second through fifth fingers. There is well-corticated density just nonunited fracture radial side of the of the base of the second proximal phalanx. The soft tissue structures are unremarkable. 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
--- OUTSIDE RECORDS SUMMARY | 2023-05-28 11:03 | XMS RPT_ITS | CCD ---
Author Name Unknown Address [address] [place] [address] Organization [facility] Results Test Name Value Interpretation Reference Range Facil ity Progress note 09-16-2020 Note Date & Type Note Facility 09-16-2020 Note HNO ID: [id number] Author: Lei Ventura MD Service: ? Author Type: Physician Type: Progress Notes Filed: 09/16/2020 4:24 PM Note Text: This note was created using ncycloter. Subjective Patient presents with: Establish Care Nate [...] made it f (more content not included)... [facility] Summary Purpose Family History No Family [...] BE BASED ON THE PRIMARY CLINICAL RECORDS. [employer] [facility]. provides no warranty or guarantee of the accuracy or completeness of information in this document.
== END 2023-05-28 12:09 | disposition home or self-care (01) ==
LOC: ED 11:01
PROVIDERS: Emergency Provider Emergency Medicine; PCP Family Medicine; Visit Provider Emergency Medicine
DX: S62.611A Displaced fracture of proximal phalanx of left index finger, initial encounter for closed fracture (principal); W31.9XXA Contact with unspecified machinery, initial encounter; Y99.0 Civilian activity done for income or pay; Z87.891 Personal history of nicotine dependence
CPT/HCPCS: 73130; 99282

== ENCOUNTER → 2023-06-15 | Outpatient (CLI) | payer OTHER, SELFPAY ==
--- NOTE | 2023-06-15 14:36 | RAD_ITS ---
STUDY: X-RAY - LEFT HAND, ATTENTION INDEX FINGER REASON FOR EXAM: Male, 22 years old. F/U fracture care TECHNIQUE: 3 view(s) of the finger were obtained. COMPARISON: Comparison is made with prior study of May 28, 2023. FINDINGS: Normal metacarpal head. Normal metacarpophalangeal joint. Stable nonunited fracture at the base of the proximal phalanx of the index finger. Normal middle phalanx. Normal distal phalanx. Normal proximal interphalangeal joint. Normal distal interphalangeal joint. RAD/Finger(s) Min 2 Views IMPRESSION: Stable examination. Electronically Signed: Neil Davison MD at 15:09 EST ,
--- OUTSIDE RECORDS SUMMARY | 2023-06-15 15:11 | XMS RPT_ITS | CCD ---
Author Name Unknown Address [address] [place] [address] Organization [facility] Results Test Name Value Interpretation Reference Range Facil ity Progress note 09-16-2020 Note Date & Type Note Facility 09-16-2020 Note HNO ID: [id number] Author: Lei Ventura MD Service: ? Author Type: Physician Type: Progress Notes Filed: 09/16/2020 4:24 PM Note Text: This note was created using [employer]aveLogic[employer]. Subjective Patient presents with: Establish Care Nate [...] made it f (more content not included)... [facility] Summary Purpose Family History No Family [...] BE BASED ON THE PRIMARY CLINICAL RECORDS. [employer] [facility]. provides no warranty or guarantee of the accuracy or completeness of information in this document.
== END | disposition home or self-care (01) ==
LOC: MTRAD 14:36
PROVIDERS: PCP Family Medicine; Referring Provider Physician Assistant Surgical; Visit Provider Physician Assistant Surgical
DX: S62.641A Nondisplaced fracture of proximal phalanx of left index finger, initial encounter for closed fracture (principal); X58.XXXA Exposure to other specified factors, initial encounter
CPT/HCPCS: 73140

== ENCOUNTER → 2023-06-29 | Outpatient (CLI) | payer OTHER, SELFPAY ==
--- NOTE | 2023-06-29 12:41 | RAD_ITS ---
STUDY: X-RAY - LEFT HAND, ATTENTION INDEX FINGER REASON FOR EXAM: Male, 22 years old. f/u finger fx TECHNIQUE: 3 view(s) of the finger were obtained. COMPARISON: None. FINDINGS: Normal metacarpal head. Normal metacarpophalangeal joint. Stable nonunion fracture of the base of the proximal fundus of the index finger. Normal middle phalanx. Normal distal phalanx. Normal proximal interphalangeal joint. Normal distal interphalangeal joint. RAD/Finger(s) Min 2 Views IMPRESSION: Stable examination. Electronically Signed: Neil Davison MD at 13:50 EST ,
--- OUTSIDE RECORDS SUMMARY | 2023-06-29 14:05 | XMS RPT_ITS | CCD ---
Author Name Unknown Address [address] [place] [address] Organization [facility] Results Test Name Value Interpretation Reference Range Facil ity Progress note 09-16-2020 Note Date & Type Note Facility 09-16-2020 Note HNO ID: [id number] Author: Lei Ventura MD Service: ? Author Type: Physician Type: Progress Notes Filed: 09/16/2020 4:24 PM Note Text: This note was created using [employer]. Subjective Patient presents with: [facility] Care Nate Quintero was here for anxiety. [...] made it f (more content not included)... [facility] Summary Purpose Family History No Family History [...] BE BASED ON THE PRIMARY CLINICAL RECORDS. [employer] [facility]. provides no warranty or guarantee of the accuracy or completeness of information in this document.
== END | disposition home or self-care (01) ==
LOC: MTRAD 12:41
PROVIDERS: PCP Family Medicine; Referring Provider Physician Assistant Surgical; Visit Provider Physician Assistant Surgical
DX: S62.641A Nondisplaced fracture of proximal phalanx of left index finger, initial encounter for closed fracture (principal); X58.XXXA Exposure to other specified factors, initial encounter
CPT/HCPCS: 73140